=== PATIENT | male | born 1975 | race Caucasian/White ===

== ENCOUNTER 2020-02-29 14:01 | Inpatient (IN) | payer MEDICARE ==
[2020-02-29] VITALS (11 sets, daily range): BP systolic 110–146; BP diastolic 63–93; BMI 28.9
[~2020-02-29] VITALS: Ht 170.2 cm; Wt 82.6 kg
--- NOTE | ~2020-02-29 | EEG ---
PATIENT:FARRUKH REYES MEDICAL RECORD: [id number] DATE OF : 71 LOCATION:D.230 D.ICU ADMISSION DATE: 02/29/20 REFERRING PHYSICIAN: INTERPRETING PHYSICIAN: EMA GREGORY MD DATE OF SERVICE: 03/03/2020 ROOM NUMBER: ICU bed [id number]. ORDERED BY: Dr. Gregory. CASE HISTORY: A 44-year-old male status post brain tumor resection, admitted with recurrent seizure and Alex's paresis with first EEG on 03/02/2020, demonstrating a recurrent seizure with the patient remaining in twilight state suggesting status. PROCEDURE: EEG done is a routine bedside portable recording using the standard 10-20 international electrode system. 16 channels used with 17th as EKG. Photic stimulation done as activation procedures. DESCRIPTION: EEG opens with the patient sleeping and snoring without significant arousal with stimulation. The record displays diffuse background theta and delta slowing with theta activities occurring in the left hemisphere much more prominent than right. Some of high voltage and sharp contoured F3-C3. Diffuse nonrhythmic delta, more prominently at F3 C3 and F7 is seen and at times complexes of sharps and slows in the left hemisphere often of high voltage, occasionally occurring in a semi-rhythmic, 3 Hz pattern, mostly at F3 C3 and P3 and later in the record, these semi-rhythmic complexes generalized somewhat to the right hemisphere. Bilateral independent single sharp waves were seen again, more prominent left hemisphere at P3. No distinct spike and wave or polyspike was seen. Photic stimulation did not yield a photoparoxysmal response. IMPRESSION: Moderate to markedly abnormal EEG with continued diffuse background slowing with encephalopathy and sharps and slows in semi-rhythmic, frequencies of 3 Hz suggesting possibility of continued paroxysmal activity, especially in light of the patient remaining in a twilight state, not responding to Depakote and Keppra at maximal dosing and blood levels. TRANSINT:[id number] Voice Confirmation ID: [id number] DOCUMENT ID: [id number] EMA GREGORY MD CC: [id number] DICTATION DATE: 03/03/201650 LODE MINER: 03/04/20 0007 ADM IN [facility] [id number] [place] [address]
--- NOTE | ~2020-02-29 | EEG ---
PATIENT:FARRUKH REYES MEDICAL RECORD: [id number] DATE OF : 71 LOCATION:D.230 D.ICU ADMISSION DATE: 02/29/20 REFERRING PHYSICIAN: INTERPRETING PHYSICIAN: EMA GREGORY MD DATE OF SERVICE: 03/02/2020 DATE OF EE03/02/2020. ROOM NUMBER: ICU bed [id number]. Ordered by Dr. Gregory. CASE HISTORY: A 44-year-old male admitted with confusion, speech disturbance, and right arm weakness with history of left brain tumor resection and subsequent seizure disorder, taking Keppra 500 mg b.i.d. 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 The patient has remained confusional and poorly responsive, unable to communicate and complete sentences. PROCEDURE: EEG done as a routine bedside portable recording using the standard 10-20 international electrode system, 16 channel was used with 17th as EKG. Photic stimulation done as activation procedure. DESCRIPTION: EEG opens with the patient poorly responsive with a background demonstrating variable 8-10 Hz. Frequent theta and delta slowing is seen in the record, frequent often high voltage and sharp contoured theta seen primarily in the left hemisphere in the frontal, central, and parietal regions, primarily in F7 and P3 with some bilateral theta occurring asynchronously. Frequent high voltage sharp and slow were seen again in the left hemisphere at C3-P3 and P3-O1 and probable spike at P3 was seen with sharps and slows and spike in wave occurring intermittently at about every 2 seconds with 3 lengthy bursts of high voltage sharps and slows mixed with spike and wave intermixed with semi-rhythmic to rhythmic delta occurring about 3.5 Hz. Three bursts of higher frequency, high voltage, sharp and slow and spikes in waves were seen with progressively elevated voltages each lasting 1 to 1-1/2 minutes with 3 full bursts or seizures occurring during the recording. After each burst of spike and wave was seen post spell delta gradually returning to baseline. Photic stimulation was without a photoparoxysmal response. IMPRESSION: Markedly abnormal EEG with bursts of spike and wave and sharps and slows occurring in a rhythmic fashion indicating a seizure activity not obvious clinically to the onlookers. Presentation might suggest status epilepticus. Clinical correlation is advised. TRANSINT:[id number] Voice Confirmation ID: [id number] DOCUMENT ID: [id number] ELECTROENCEPHALOGRAM REPORT [id number] FARRUKH REYES EMA GREGORY MD CC: [id number] DICTATION DATE: 03/02/20 1226 BOX ATTACHER: 03/02/202043 ADM IN [facility] [address] [id number]
[2020-02-29] MEDS ORDERED: CYPROHEPTAD2 MG/5 ML PO (14:30)
[2020-02-29] MEDS ORDERED: OMEPRAZOLE20 M1 PO (14:30)
[2020-02-29] MEDS ORDERED: KEPPRA500 MG PO (14:30)
[2020-02-29] MEDS ORDERED: HYDROCODON-ACE1 EAC7 PO (14:31)
[2020-02-29] MEDS ORDERED: REVATIO20 MG PO (14:31)
[2020-02-29] MEDS ORDERED: PEPCID40 MG PO (14:32)
[2020-02-29] MEDS ORDERED: TENORMIN25 MG PO (14:32)
[2020-02-29] MEDS ORDERED: PRAVACHOL40 MG PO (14:32)
--- NOTE | 2020-02-29 15:00 | NUR ---
PT BECAME AGITATED, GOT OUT OF BED, WALKING AROUND ROOM, STATING " I NEED MY MEDICINE". BECAME COMBATIVE, FAMILY BROUGHT TO ROOM TO TRY TO DE-ESCALATE WITH OUT IMPROVEMENT.
[2020-02-29 15:18] LABS: APTT 25.6 SECONDS (22.8-39.4); INR 0.95 (0.85-1.17); PROTIME 12.6 SECONDS (11.6-15.0)
[2020-02-29 15:40] LABS: ALBUMIN 4.6 g/dL (3.4-5.0); ALKALINE PHOSPHATASE 147 U/L (30-120); ALT (SGPT) 107 U/L (10-68); BILIRUBIN - TOTAL 0.37 mg/dL (0.2-1.3); CALCIUM 9.5 mg/dL (8.5-10.1); CARBON DIOXIDE 25.9 mmol/L (21.0-32.0); CHLORIDE - SERUM 97 mmol/L (98-107); CKMB 0.3 U/L (0.0-3.6); CREATINE KINASE 75 UL (21-232); CREATININE - SERUM 1.2 mg/dL (0.6-1.3); MAGNESIUM - SERUM 2.2 mg/dL (1.8-2.4); PHOSPHOROUS 2.5 mg/dL (2.5-4.9); POTASSIUM - SERUM 3.7 mmol/L (3.5-5.1); PROTEIN - SERUM 8.3 g/dL (6.4-8.2); SODIUM 136 mmol/L (136-145); THYROID STIMULATING HORMONE 1.59 uIU/mL (0.36-3.74); UREA NITROGEN 12 mg/dL (7-18); eGFR NON AFRICAN AMERICAN 69 mL/min (90-120)
[2020-02-29 15:42] LABS: CALC OSMOLALITY 289 mosm/kg (275-300); GLUCOSE 428 mg/dL (74-106); TROPONIN-I < 0.017 ng/mL (0.000-0.060)
[2020-02-29 15:49] LABS: BASOPHILS 0.1 % (0-2); EOSINOPHILS 0.3 % (0-7); HEMATOCRIT 45.6 % (42.0-54.0); IMMATURE GRANULOCYTES 0.7 % (0-5); LYMPHOCYTES 23.2 % (15-50); MCH 30.1 pg (26.0-34.0); MCHC 35.1 g/dL (31.0-37.0); MCV 85.9 fL (80.0-100.0); MEAN PLATELET VOLUME 9.8 fL (7.4-10.4); NEUTROPHILS 70.7 % (40-80); PLATELET COUNT 261 10x3/uL (130-400); RBC 5.31 10x6/uL (4.20-6.10); RDW 12.3 % (11.5-14.5); WBC 7.1 10x3/uL (4.8-10.8)
--- NOTE | 2020-02-29 17:00 | NUR ---
UNABLE TO COMPLETE CTA, PT VOMITING, AGITATED. DR ARRIAGA INFORMED
--- NOTE | 2020-02-29 18:00 | NUR ---
CTA COMPLETE, PT RESTING BETTER NOW, VSS
[2020-02-29 18:36] LABS: BILIRUBIN NEGATIVE (NEGATIVE); GLUCOSE 1000 mg/dL (NEGATIVE); KETONE SMALL mg/dL (NEGATIVE); NITRITE NEGATIVE (NEGATIVE); UROBILINOGEN NORMAL (NORMAL)
[2020-02-29 18:42] LABS: UDS - AMPHET NEGATIVE QUAL (NEGATIVE); UDS - BARB NEGATIVE QUAL (NEGATIVE); UDS - BENZO NEGATIVE QUAL (NEGATIVE); UDS - COCAINE NEGATIVE QUAL (NEGATIVE); UDS - OPIATE POSITIVE QUAL (NEGATIVE); UDS - PCP NEGATIVE QUAL (NEGATIVE); UDS - THC POSITIVE QUAL (NEGATIVE)
--- NOTE | 2020-02-29 19:26 | NUR ---
REC'D PATIENT VIA STRETCHER FROM ER. LETHARGIC. ARROUSES TO PAIN. UNABLE TO ANSWER ANY QUESTIONS. TEMP 100.9. WEAKNESS TO RIGHT ARM > LEFT ARM. RIGHT LEFT RESPONDS TO PAIN BUT NOT TACTILE STIMULI. NYSTAGMUS NOTED BILATERALLY. RIGHT HAND PIV.
[2020-02-29] MEDS ORDERED: HYDROCODON-ACE1 EA10 PO (20:20)
[2020-02-29] MEDS ORDERED: CYMBALTA30 MG PO (20:23)
--- NOTE | 2020-02-29 20:37 | NUR ---
CALLED DR. GRULLON CONCERNING INVERTED T-WAVE. NEW ORDER FOR NG TUBE PLACEMENT AND CARDIAC ENYZMES NOW.
--- NOTE | 2020-02-29 21:00 | NUR ---
PATIENT CONTINUES LETHARGIC AND DIFFICULT TO ARROUSE. ATTEMPTED TO PLACE A NG TUBE AND PATIENT IMMEDIATELY SAT UP AND BEGAN FIGHTING NURSES. UNABLE TO REORIENT. PATIENT PULLED NG TUBE OUT. ATTEMPTED TO START ANOTHER NG TUBE AND CONTINUED TO FIGHT AND NOSE BEGAN TO BLEED. PULLED NG TUBE OUT. NOSE QUICKLY QUIT BLEEDING.
--- NOTE | 2020-02-29 21:14 | NUR ---
PATIENT WILL RESPOND TO STAFF WITH "YES" AND "BUT."
--- NOTE | 2020-02-29 21:50 | NUR ---
DR. GRULLON HERE AT BEDSIDE. FSBS 232. COMPLETED EKG PER ORDERS. NOTIFIED RADIOLOGY OF ORDER FOR MRI TONIGHT
[2020-02-29 21:52] LABS: CKMB 0.4 U/L (0.0-3.6); CREATINE KINASE 79 UL (21-232); TROPONIN-I < 0.017 ng/mL (0.000-0.060)
--- NOTE | 2020-02-29 22:05 | NUR ---
SPOKE WITH PERSON FROM MRI CONCERNING ORDER. STATES WILL BE HERE IN APPROX 30 MINS. SPOKE WITH ON THE PHONE, YORDAN AND ANSWERED SCREENING FOR MRI. PATIENT UNABLE TO ANSWER
--- NOTE | 2020-02-29 23:15 | NUR ---
PATIENT TO MRI
--- NOTE | 2020-02-29 23:50 | NUR ---
RETURNED FROM MRI
[2020-03-01] VITALS (24 sets, daily range): BP systolic 92–135; BP diastolic 50–79
--- NOTE | 2020-03-01 04:28 | NUR ---
DR. RADFORD CALLED CONCERNING PATIENT JUST BEFORE LEAVING FOR MRI AND SAID THAT MAY NEED LUMBER PUNCTURE D/T TEMPS. 0000- PATIENT STARTED TRYING TO GET UP, TORN ALL OF LEADS AND PULSE OX OFF AND WAS TRYING TO SIT UP. WHEN TRYING TO TALK TO PATIENT, PT CONT TO NOT MAKE SENSE AND ONLY SAYING YES. ORDER REC'D FOR RESTRAINTS. WITHIN MINUTES PT BECAME DIFFICULT TO ARROUSE AGAIN. 0045- TEMP 102.3. REC'D ORDER FROM DR. GRULLON FOR BLOOD CULTURES, CHEST X-RAY, TYLENOL SUPP, ANTIBIOTICS, CONSULT RADIOLOGY FOR LUMBER PUNCTURE IN THE MORNING. ALSO, MRI PRELIMINARY RESULTS CALLED ALSO TO DR. GRULLON. 0115- ORDER FOR VANC WAS 1GM BUT PHARMACY CHANGED DOSAGE AFTERWARDS. PHARMACY TO FOLLOW. BLOOD CULTURES OBTAINED FROM LAB PRIOR TO ABT. 0209- TEMP 100.9. 0320- PATIENT CAME OUT OF RESTRAINTS ON THE LEFT ARM AND TORN OFF ALL LEADS, CP CUFF, AND PULSE OX. NO CHANGES IN NEURO STATUS.
--- NOTE | 2020-03-01 06:10 | NUR ---
BROKE RESTRAINTS TO LEFT HAND AND TOOK OFF NC. PATIENT DID NOT DESAT DURING THIS TIME. TRIED TO GET RESTRAINT BACK ON AND PATIENT BEGAN FIGHTING NURSE. PATIENT NOW SAYS "YEAH, BUT I NEED TO GET" RESPONSES. BED ALARM IS ON.
--- NOTE | 2020-03-01 06:20 | NUR ---
RESTRAINTS CONT ON PT, PULLING LINES AND F/C
--- NOTE | 2020-03-01 07:58 | NUR ---
TEMP 101. COOL BATH AND ICE PACKS APPLIED. FLACID RUE AND RLE. ANSWERS YEA TO ALL QUESTIONS ASKED.
--- NOTE | 2020-03-01 10:20 | NUR ---
PREPROCEDURAL HALDOL AND ATIVAN GIVEN, CONCENTS ON CHART. DR RADFORD HERE ON ROUNDS AND DR GRULLON. PT TAKEN TO IR FOR LUMBAR PUNCTURE.
[2020-03-01 12:19] LABS: APPEARANCE - CSF CLEAR; RBC - CSF 1 cmm (0-0)
[2020-03-01 12:30] LABS: GLUCOSE - CSF 134 MG/DL (40-75); PROTEIN - CSF 87 MG/DL (12-60)
--- NOTE | 2020-03-01 14:01 | NUR ---
TEMP 103. TYLENOL SUPP GIVEN. IV SITED TO LAC 20G X 1 STICK.
[2020-03-02] VITALS (24 sets, daily range): BP systolic 104–154; BP diastolic 60–98; Ht 170.2 cm; Wt 82.6 kg
--- NOTE | 2020-03-02 04:37 | NUR ---
1900- REPORT REC'D. ASSESSMENT COMPLETED. NO NYSTAGMUS NOTED. RIGHT < LEFT ARM STRENGTH. RIGHT LEG RESPONDS VERY LITTLE TO TACTILE. NOT FOLLOWING COMMANDS. OPENS EYES TO VOICE. ONLY SAYS "YEAH." MODERATE WITH REPOSITIONING. 2100- REPOSITIONED. PATIENT DOESN'T TRY TO GET OOB OR GET OUT OF RESTRAINTS. [id number] COMPLETED. NO CHANGES SINCE LAST ASSESSMENT. NEURO ASSESSMENT IS UNCHANGED. PATIENT HAS NOT TRIED TO PULL ANY LINES. 0030- RESTRAINTS DC AT THIS TIME. PATIENT IS NOT TRYING TO PULL ANY LINES AT THIS TIME. 0100-REPOSITIONED. 0300- NEURO ASSESSMENT IS UNCHANGED. RE-ASSESSMENT COMPLETED.
--- NOTE | 2020-03-02 07:56 | NUR ---
REPORT RECEIVED. PT CONFUSED AND HAS SOME APHASIA. HE HAS RIGHT SIDED WEAKNESS. PT IS FSBS ACHS. HE HAS IVS IN HIS RIGHT HAND AND IN LEFT AC. SCAR TO LEFT SIDE OF HEAD FROM HISTORY OF CRANIOTOMY. PT HAS BOWMAN. HE IS ON ROOM AIR. VSS. WILL CONTINUE TO MONITOR.
--- NOTE | 2020-03-02 09:30 | NUR ---
PT HAVING EEG DONE.
--- NOTE | 2020-03-02 13:00 | NUR ---
FAMILY UPDATED. NEW ORDERS PER DR RADFORD.
--- NOTE | 2020-03-02 15:15 | NUR ---
PT RESTING QUIETLY. VSS. WILL CONTINUE TO MONITOR.
--- NOTE | 2020-03-02 17:15 | NUR ---
DR RADFORD UPDATED. CALLED AND UPDATED WELL.
[2020-03-03] VITALS (24 sets, daily range): BP systolic 122–154; BP diastolic 66–111
[2020-03-03 03:55] LABS: BASOPHILS 0 % (0-2); EOSINOPHILS 0.1 % (0-7); HEMATOCRIT 35.2 % (42.0-54.0); HEMOGLOBIN 12.1 g/dL (13.5-17.5); LYMPHOCYTES 12.7 % (15-50); MCH 29.1 pg (26.0-34.0); MCHC 34.4 g/dL (31.0-37.0); MCV 84.6 fL (80.0-100.0); MEAN PLATELET VOLUME 9.5 fL (7.4-10.4); MONOCYTES 7.4 % (2-11); NEUTROPHILS 78.8 % (40-80); RBC 4.16 10x6/uL (4.20-6.10); RDW 12.1 % (11.5-14.5); WBC 11.4 10x3/uL (4.8-10.8)
[2020-03-03 04:07] LABS: PLATELET COUNT 196 10x3/uL (130-400)
[2020-03-03 04:25] LABS: ALBUMIN 2.8 g/dL (3.4-5.0); ALKALINE PHOSPHATASE 78 U/L (30-120); ALT (SGPT) 33 U/L (10-68); BILIRUBIN - TOTAL 0.63 mg/dL (0.2-1.3); CALCIUM 7.9 mg/dL (8.5-10.1); CARBON DIOXIDE 20.5 mmol/L (21.0-32.0); CHLORIDE - SERUM 104 mmol/L (98-107); CREATININE - SERUM 0.9 mg/dL (0.6-1.3); PROTEIN - SERUM 6.1 g/dL (6.4-8.2); SODIUM 136 mmol/L (136-145); UREA NITROGEN 8 mg/dL (7-18); eGFR NON AFRICAN AMERICAN > 90 mL/min (90-120)
[2020-03-03 04:29] LABS: CALC OSMOLALITY 273 mosm/kg (275-300); GLUCOSE 163 mg/dL (74-106)
[2020-03-03 04:30] LABS: POTASSIUM - SERUM 2.7 mmol/L (3.5-5.1)
--- NOTE | 2020-03-03 07:20 | NUR ---
REPORT RECEIVED. POTASSIUM 2.7 THIS MORNING. 2 POTASSIUM RIDERS (10 MEQ) GIVEN. WAITING ON PHARMACY TO LOAD MORE TO GIVE THE REST OF THE POTASSIUM REPLACEMENT. PT HAS BOWMAN. IV TO LEFT AC AND RIGHT HAND. UNABLE TO FOLLOW COMMANDS. APHASIAC. VSS. WILL CONTINUE TO MONITOR.
--- NOTE | 2020-03-03 09:18 | NUR ---
PT INCONTINENT OF BOWEL. CHG BATH GIVEN. PT REPOSITIONED.
--- NOTE | 2020-03-03 12:53 | NUR ---
PT TRANSFERRED FROM CV BED TO ICU BED. TOLERATED WELL. PT REPOSITIONED. VSS. WILL CONTINUE TO MONITOR.
--- NOTE | 2020-03-03 13:07 | NUR ---
DR RADFORD CALLED AND UPDATED REGARDING PT STATUS. NEW ORDERS PLACED. CALLED AND UPDATED. WILL CONTINUE TO MONITOR.
--- NOTE | 2020-03-03 14:16 | NUR ---
CALLED DR RADFORD REGARDING LAB RESULTS OF RIA AND ANAI. STATED THESE LEVELS ARE ACCEPTABLE AND AWAITING EEG RESULTS. NO NEW ORDERS AT THIS TIME.
--- NOTE | 2020-03-03 15:12 | NUR ---
EEG BEING DONE AT THIS TIME.
--- NOTE | 2020-03-03 23:29 | NUR ---
CALLED, UPDATE GIVEN, NO CONCERNS NOTED, WILL CONTINUE TO MONITOR
[2020-03-04] VITALS (10 sets, daily range): BP systolic 117–162; BP diastolic 70–94
[2020-03-04 04:54] LABS: BASOPHILS 0.1 % (0-2); EOSINOPHILS 1.9 % (0-7); HEMATOCRIT 35.8 % (42.0-54.0); HEMOGLOBIN 12.3 g/dL (13.5-17.5); IMMATURE GRANULOCYTES 2.1 % (0-5); LYMPHOCYTES 17.9 % (15-50); MCH 29.4 pg (26.0-34.0); MCHC 34.4 g/dL (31.0-37.0); MCV 85.4 fL (80.0-100.0); MEAN PLATELET VOLUME 9.8 fL (7.4-10.4); MONOCYTES 7.6 % (2-11); NEUTROPHILS 70.4 % (40-80); PLATELET COUNT 182 10x3/uL (130-400); RBC 4.19 10x6/uL (4.20-6.10); RDW 12.3 % (11.5-14.5)
[2020-03-04 05:07] LABS: ALBUMIN 2.8 g/dL (3.4-5.0); ALKALINE PHOSPHATASE 79 U/L (30-120); ALT (SGPT) 39 U/L (10-68); CALC OSMOLALITY 273 mosm/kg (275-300); CHLORIDE - SERUM 104 mmol/L (98-107); CREATININE - SERUM 0.9 mg/dL (0.6-1.3); GLUCOSE 140 mg/dL (74-106); PHENOBARBITAL 14.3 ug/mL (15.0-40.0); PROTEIN - SERUM 6.3 g/dL (6.4-8.2); SODIUM 137 mmol/L (136-145); UREA NITROGEN 8 mg/dL (7-18); VALPROIC ACID (DEPAKOTE) 74.4 ug/mL (50.0-100.0); eGFR NON AFRICAN AMERICAN > 90 mL/min (90-120)
[2020-03-04 05:14] LABS: POTASSIUM - SERUM 3.3 mmol/L (3.5-5.1)
--- NOTE | 2020-03-04 08:10 | NUR ---
DR. RADFORD UPDATED ABOUT PATIENT AND ASKED ABOUT WHAT MEDS HE WANTS TO GIVE TO EASY THE PATIENT. PERFERS HALODOL OVER ATIVAN. ALSO CONFIRMED PICC LINE PLACEMENT.
--- NOTE | 2020-03-04 08:16 | EC ---
PATIENT:FARRUKH REYES DATE OF SERVICE: 02/29/20 SEX: M MEDICAL RECORD: [id number] DATE OF : 71 LOCATION:[facility] D230 AGE OF PATIENT: 44 ADMISSION DATE: 02/29/20 REFERRING PHYSICIAN: INTERPRETING PHYSICIAN: ROSMERY MCARTHUR MD ECHOCARDIOGRAM REPORT ECHO CHARGES 4 ECHO COMPLETE Date: 03/01/20 CLINICAL DIAGNOSIS: EVALUATE LV FUNCTION, PULMONARY EDEMA ECHOCARDIOGRAPHIC MEASUREMENTS (adult normal given) AC root (d.<3.7cm) 3.5 cm LV Septum d (<1.2 cm> 1.3 cm Valve Excursion 2.2 cm LV Septum (systole) 1.7 cm Left Atria (s.<4.0cm> 4.5 cm LVPW d(<1.2cm) 1.4 cm RV (d.<2.3cm) 3.5 cm LVPW (sytole) 1.9 cm LV diastole(<5.6CM) 4.7 cm MV E-F(>70mm/sec) cm LV systole 2.5 cm LVOT Diameter 1.8 cm MV exc.(>10mm) 1.8 cm Est.ejection fraction (50-75%) % DOPPLER: LVIT cm/sec A 48.0 cm/sec E 137.0 cm/sec LA cm/sec RVSP 23 mmHg LVOT 107 cm/sec AOP1/2T m/s Asc. Ao 154 cm/sec RVOT 97 cm/sec RA cm/sec PA 121 cm/sec AV Gradient Peak 9.52 mmHg AV Mean 5.25 mmHg AV Area 2.1 cm MV Gradient Peak 8.32 mmHg MV Mean 2.13 mmHg MV Area cm COMMENTS: Media Reconciliation Specialist: 2 ARABELLA ALFARO Economic Developer: 4 Dr. Bryant TAPE# PACS Pericardial Effusion N DATE OF SERVICE: Adequate 2D, color flow imaging, spectral Doppler, and M-Mode. Mild LVH. LV internal dimension is normal. Wall motion is normal. EF is greater than or equal to 55%. Aortic valve is tricuspid. No evidence of stenosis by Doppler interrogation. Left atrium dilated at 4.5 cm. Mitral valve shows no prolapse. Trace MR. Right-sided chambers are grossly normal. Trace TR. ECHOCARDIOGRAM REPORT [id number] FARRUKH REYES TRANSINT:[id number] Voice Confirmation ID: [id number] DOCUMENT ID: [id number] ROSMERY MCARTHUR MD at 0816 CC: [id number] DICTATION DATE: 03/02/2048 DRAGGER: 03/02/20 1128 ADM IN [facility] [address] [id number]
--- NOTE | 2020-03-04 10:15 | NUR ---
CALLED AND UPDATE GIVEN. UPDATED ABOUT NEUROLOGIST THAT HE HAS BEEN SEEING FOR YEARS. CALLED DR RADFORD AND UPDATED HIM HE STATES THAT PT MAY NEED TO BE TRANSFERED TO [facility] FOR FURTHER CARE.
--- NOTE | 2020-03-04 10:52 | NUR ---
NOTIFIED ABOUT TRANSFER TO [facility] FOR EPILEPTOLOGIST SPECIALIST. AGREED WITH WILL START THE TRANSFER.
--- NOTE | 2020-03-04 10:56 | NUR ---
Nutrition follow-up: Pt continues NPO; has been NPO for 5 days Labs reviewed Wt: 182# +BM Discussed pt with Dr. Spaulding in IDT meeting. Will order TF to start today after NGT placed. RDN will order Osmolite 1.0 tee @ 25 with increase to goal rate of 75 ml/hr with 125 ml H2O flush Q [address] RDN following.
--- NOTE | 2020-03-04 11:16 | NUR ---
CASE MANAGMENT NOTIFIED AND IS INITIATING TRANSFER
--- NOTE | 2020-03-04 14:55 | NUR ---
SKIN WARM, DRY AND INTACT. NO BREAKDOWN NOTED. WOUND CARE CONTINUES TO MONITOR.
--- NOTE | 2020-03-04 18:45 | NUR ---
PT TRANSFER STARTED AND DISCUSSED WITH TRANSFER AND [facility] TO TRANSFER PT TO [facility]. PT UPDATED AND SHE AGREESING WITH [facility] TRANFER[facility]. REPORT CALLED TO E416 TO ALEXANDRO DARNELL. EMS NOTIFIED AND ARRIVED AT 1840 PT MOVED TO EMS BED AND HOOKED TO EMS MONITOR. ALL CHART AND PAPER WORK SENT WITH EMS CREW.
--- NOTE | 2020-03-04 18:49 | MORECARE ---
CASE MANAGEMENT DISCHARGE SUMMARY PATIENT: FARRUKH REYES UNIT: [id number] ADM DATE: 02/29/20 AGE: 44 : [birth year] SEX: M ROOM/BED: D.2304 AUTHOR: TEVIN REGALADO PHYSICIAN: REFERRING PHYSICIAN: HAWA GRULLON MD DATE OF SERVICE: 03/04/20 Discharge Plan Patient Name: FARRUKH REYES [facility] [facility] 1975 Planned Disposition: Anticipated Discharge Date: Discharge Date: Expected LOS: Initial Reviewer: [email or web address] Initial Review Date: 02/29/2020 Generated: 03/04/20 7:48 pm DCPIA - Discharge Planning Initial Assessment Updated by [email or web address]: Meme Smith on 03/04/20 6:44 pm * Is the patient Alert and Oriented? No * How many steps to enter\exit or inside your home? External Providers External Provider: TRANS-TRANSFER CALL CENTER Next Contact Date: Service Request Date: Service Type: Resolution: Reviewer: Comments: Patient Name: FARRUKH REYES Page [phone] at 1849 All edits/amendments must be made on the electronic document DICTATION DATE: 03/04/201847 CRAFT COORDINATOR: LIAM 03/04/201847 RPT#: [id number] DC DATE: STATUS: ADM IN [facility] [address] [place] [address] END OF REPORT
--- NOTE | 2020-03-04 18:56 | MORECARE ---
CASE MANAGEMENT DISCHARGE SUMMARY PATIENT: FARRUKH REYES UNIT: [id number] ADM DATE: 02/29/20 AGE: 44 : 71 SEX: M ROOM/BED: D.2304 AUTHOR: TEVIN REGALADO PHYSICIAN: REFERRING PHYSICIAN: HAWA GRULOLN MD DATE OF SERVICE: 03/04/20 Discharge Plan Patient Name: FARRUKH REYES Facility: [facility]:[place] : 1975 Planned Disposition: Anticipated Discharge Date: Discharge Date: Expected LOS: Initial Reviewer: [email or web address] Initial Review Date: 02/29/2020 Generated: 03/04/20 7:55 pm Comments DCP- Discharge Planning Updated by [email or web address]: Meme Smith on 03/04/20 5:[address] Patient Name: FARRUKH REYES Admission Status: ER Accout number: [id number] Admission Date: 02-29-2020 : 1975 Admission Diagnosis:GUSTAVO'S PARALYSIS (POSTEPILEPTIC) Attending: HAWA GRULLON Current LOS: 4 Anticipated DC Date: Planned Disposition: Primary Insurance: [employer] ADV Discharge Planning Comments: PHYSICIAN REQUEST TRANFER TO HIGHER LEVEL OF CARE. MD REQUEST PATIENT TO TRANSFER TO [facility] EPILEPTOLOGIST. CM SENT REQUEST TO TRANSFER CENTER. NURSING CONTACTED PATIENT'S FAMILY ABOUT TRANSFER REQUEST. CHART COPIED AND DISK OF IMAGES SENT WITH PATIEN. TRANSFER TO [facility] VIA AMBULANCE. Cardiothoracic Anesthesia Technician: Meme Smith DCPIA - Discharge Planning Initial Assessment Updated by [email or web address]: Meme Smith on 03/04/20 6:44 pm * Is the patient Alert and Oriented? No * How many steps to enter\exit or inside your home? Last DP export: 03/04/20 5:49 pm Patient Name: FARRUKH REYES Page [phone] at 1856 All edits/amendments must be made on the electronic document DICTATION DATE: 03/04/201854 SUPERVISOR DIALS: LIAM 03/04/201854 RPT#: [id number] DC DATE: STATUS: ADM IN [facility] [address] [place] [address] END OF REPORT
== END 2020-03-04 19:26 | disposition home or self-care (01) | DRG 100 ==
LOC: D.ER 14:01 → D.ICU 17:23
PROVIDERS: Emergency Medicine; Specialist; ADMIT Internal Medicine Nephrology; ATTEND Internal Medicine Nephrology
PROC: 009U3ZZ Drainage of Spinal Canal, Percutaneous Approach (ICD-10-PCS; principal; 2020-03-01)
DX: G40.119 Localization-related (focal) (partial) symptomatic epilepsy and epileptic syndromes with simple partial seizures, intractable, without status epilepticus (principal); R40.2123 Coma scale, eyes open, to pain, at hospital admission; R40.2223 Coma scale, best verbal response, incomprehensible words, at hospital admission; I27.82 Chronic pulmonary embolism; R47.01 Aphasia; G93.40 Encephalopathy, unspecified; G83.84 Todd's paralysis (postepileptic); E11.69 Type 2 diabetes mellitus with other specified complication; R40.2353 Coma scale, best motor response, localizes pain, at hospital admission